=== PATIENT | male | born 1960 | race Caucasian/White ===

== ENCOUNTER 2025-03-15 17:45 | Emergency (ER) | payer SELFPAY ==
[2025-03-15] VITALS (9 sets, daily range): BP systolic 134–179; BP diastolic 66–75; PULSE 68–84; RESP 14–23; TEMP 36.8; O2SAT 96–100
--- NOTE | ~2025-03-15 | CT_ITS ---
CT abdomen pelvis w con Ordering provider: Nenita Sin PA-C History: 64 years Male with . distended abd, transaminitis . Comparison: The Technique: CT abdomen and pelvis with IV and without oral contrast. Automated exposure control and it erative reconstruction technique were employed. The dose-length product was 325.21 mGy-cm. 100 mL Omn ipaque 350 was Findings: VISUALIZED LOWER CHEST: The patient at 11 dependent atelectatic changes. UPPER ABDOMINAL ORGANS: Liver: Liver cirrhosis. Multiple masses in the liver with the largest measuring7.7 x 5.8 cm and 5.9 x 6.1 cm. Prominent prostate vein with thrombosis seen inside the brain. Gallbladder: Cholelithiasis. Spleen: Varices are seen in the hilum of the spleen. Stomach/duodenum: Small sliding hiatus hernia. Pancreas: Normal. Adrenals: Normal. Kidneys: Normal. PELVIC ORGANS: The bladder shows thickened wall. Evaluation for cystitis advised. BOWEL AND MESENTERY: Colon: No evidence of diverticulitis.. Appendix is not demonstrated. Small Bowel: Normal. No obstruction. Peritoneum/mesentery: No free air. Gross ascites is noted. No mesenteric lymphadenopathy. RETROPERITONEUM: Moderate atheromatous disease of the abdominal aorta. No retroperitoneal lymphaden opathy. MUSCULOSKELETAL: Superficial soft tissues: The superficial soft tissues are normal. Bones: Compression fractures of L3 and L4 is noted with multiple metastatic lesions seen in the spine . Metastatic lesions in the iliac bones are also noted. Age appropriate degenerative changes of the s pine. IMPRESSION: 1. Liver cirrhosis with masses in the liver suggestive of hepatocellular carcinoma. Metastatic lesio ns are not excluded. 2. Gross ascites. 3. Comparison is seen in the hilum of the spleen suggestive of portal hypertension. 4. 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 5. 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 6. Cholelithiasis. Reviewed, dictated and finalized at location A. IMPRESSION: 1. Liver cirrhosis with masses in the liver suggestive of hepatocellular carci noma. Metastatic lesions are not excluded. 2. Gross ascites. 3. Comparison is seen in the hilum of the spleen suggestive of portal hyperten katherine. 4. 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 5. Multiple metastatic lesions in the spine with compression fracture of L3 an d L4. 6. Cholelithiasis.
--- NOTE | ~2025-03-15 | XR_ITS ---
XR chest 1V portable Ordering provider: Nenita Sin PA-C History: 64 years Male with . volume overload . Comparison: None. FINDINGS: MEDIASTINUM: The cardiac silhouette is not enlarged. LUNGS: No infiltrates, effusions or pneumothorax. Prominent markings in the lower lobes with underlyi ng fibrotic changes. OTHER: No free air under the diaphragm. IMPRESSION: No acute cardiopulmonary pathology. Reviewed, dictated and finalized at location A.
--- NOTE | 2025-03-15 18:10 | ED.GENADULT ---
HPI - General Adult General Chief complaint: Unspecified <Nenita Sin PA-C - Last Filed: 03/15/25 18:11> Stated complaint: Liver issues -abdominal distention <Nenita Sin PA-C - Last Filed: 03/15/25 18:11> Time Seen by Provider: 03/15/25 19:01 <Nenita Sin PA-C - Last Filed: 03/15/25 18:11> Focused HPI: 64 y/o M with no past medical history presents to emergency department with concerns for ?liver issues?. Patient states he has had abdominal distention for the past 2 months, worsening over the past 2 weeks. Over the past 3 weeks began developing bilateral lower extremity edema that extends up into his proximal tibia. He denies current EtOH use but states he did quit drinking ETOH about 20 years ago. He was drinking 2-3 beers a day daily for couple of years at that time. He denies drug use. Denies chest pain or shortness of breath, history of CHF or CKD. He states he went into an outpatient walk-in lab a few days ago and had a CBC chemistry obtained which showed elevated liver enzymes. He denies abdominal pain, fever, nausea or vomiting. GENERAL: Well-appearing, well-nourished, and in no acute distress. HEAD: Normocephalic, atraumatic. CHEST: Clear to auscultation. ?No respiratory distress. HEART: Regular rate and rhythm.? NEURO: ?Alert and oriented x3. Patient screened in triage and initial orders placed.? ?Additional care and disposition to be based upon?diagnostic testing and treatment. <Nenita Sin PA-C - Last Filed: 03/15/25 18:11> Related Data Allergies/adverse reactions: Allergies Allergy/AdvReac Type Severity Reaction Status Date / Time No Known Allergies Allergy Verified 03/15/25 17:48 <Nenita Sin PA-C - Last Filed: 03/15/25 18:11> Review of Systems Review of Systems: All systems are reviewed and are negative unless stated otherwise in the HPI. <Lucas Velasco MD - Last Filed: 03/15/25 21:48> Exam Narrative: General: Alert, awake, afebrile, in no acute distress, mild jaundice. HEENT: PERRL, no rhinorrhea, no post nasal drip, oropharynx clear, mild scleral icterus. Neck: Trachea midline, no JVD, no lymphadenopathy. Cardiovascular: Regular rate and rhythm, no murmurs, rubs or gallops, 3+ bilateral lower extremity pitting edema extending up to the mid gardner. Respiratory: Clear to auscultation bilaterally, no tachypnea, no wheezing, no rhonchi, no rubs, no respiratory distress. Abdomen: Hard, nontender, distended, no rebound, no guarding, no peritoneal signs. Musculoskeletal: No joint swelling or deformity, normal muscle tone. Skin: No rashes or petechia, no signs of infection. Psychiatric: Alert and oriented, normal behavior and judgment for situation. Neurological: Alert and oriented to person, place, and time. Follows all commands. No focal deficits, speech is clear and fluent. <Lucas Velasco MD - Last Filed: 03/15/25 21:48> Course Vital Signs Vital signs: Vital Signs Temperature 98.2 F 03/15/25 17:50 Pulse Rate 84 03/15/25 17:50 Respiratory Rate 16 03/15/25 17:50 Blood Pressure 179/74 H 03/15/25 17:50 Pulse Oximetry 100 03/15/25 17:50 Temperature 98.2 F 03/15/25 17:50 Pulse Rate 73 03/15/25 20:17 Respiratory Rate 20 03/15/25 20:17 Blood Pressure 139/75 03/15/25 20:17 Pulse Oximetry 100 03/15/25 20:17 <Nenita Sin PA-C - Last Filed: 03/15/25 18:11> Vital Signs Temperature 98.2 F 03/15/25 17:50 Pulse Rate 84 03/15/25 17:50 Respiratory Rate 16 03/15/25 17:50 Blood Pressure 179/74 H 03/15/25 17:50 Pulse Oximetry 100 03/15/25 17:50 Temperature 98.2 F 03/15/25 17:50 Pulse Rate 73 03/15/25 20:17 Respiratory Rate 20 03/15/25 20:17 Blood Pressure 139/75 03/15/25 20:17 Pulse Oximetry 100 03/15/25 20:17 <Lucas Velasco MD - Last Filed: 03/15/25 21:48> Medical Decision Making MDM Narrative Medical decision making narrative: The patient was evaluated by myself in the emergency department. History is obtained from patient who is an independent historian and physical exam was performed. External medical records were reviewed at this time. IV was established and pertinent tests were ordered. Laboratory results obtained revealing a total bilirubin of 2.7, AST of 140, ALT of 90, otherwise unremarkable. Imaging studies obtained included CT abdomen pelvis with IV contrast which was independently interpreted by me revealing: IMPRESSION: 1. Liver cirrhosis with masses in the liver suggestive of hepatocellular carcinoma. Metastatic lesions are not excluded. 2. Gross ascites. 3. Comparison is seen in the hilum of the spleen suggestive of portal hypertension. 4. 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 5. 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 6. Cholelithiasis. Differential diagnosis considerations include cirrhosis, ascites, hepatic biliary disease, hepatocellular carcinoma. Comorbidities impacting this visit include none. I have evaluated and discussed social determinants of health with the patient that could potentially impact subsequent diagnosis and treatment plans. At this time, patient's blood work and CTs results were reviewed with the patient at bedside. 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 Patient understands the risk including . He states that he would rather take himself over to [place] or [facility] tomorrow and he does not want to be transferred tonight. <Lucas Velasco MD - Last Filed: 03/15/25 21:48> Vital Signs Vital Signs: Vital Signs Temperature 98.2 F 03/15/25 17:50 Pulse Rate 84 03/15/25 17:50 Respiratory Rate 16 03/15/25 17:50 Blood Pressure 179/74 H 03/15/25 17:50 Pulse Oximetry 100 03/15/25 17:50 Temperature 98.2 F 03/15/25 17:50 Pulse Rate 73 03/15/25 20:17 Respiratory Rate 20 03/15/25 20:17 Blood Pressure 139/75 03/15/25 20:17 Pulse Oximetry 100 03/15/25 20:17 <Nenita Sin PA-C - Last Filed: 03/15/25 18:11> Vital Signs Temperature 98.2 F 03/15/25 17:50 Pulse Rate 84 03/15/25 17:50 Respiratory Rate 16 03/15/25 17:50 Blood Pressure 179/74 H 03/15/25 17:50 Pulse Oximetry 100 03/15/25 17:50 Temperature 98.2 F 03/15/25 17:50 Pulse Rate 73 03/15/25 20:17 Respiratory Rate 20 03/15/25 20:17 Blood Pressure 139/75 03/15/25 20:17 Pulse Oximetry 100 03/15/25 20:17 <Lucas Velasco MD - Last Filed: 03/15/25 21:48> Lab Data Result diagrams: 03/15/25 19:15 03/15/25 19:15 <Nenita Sin PA-C - Last Filed: 03/15/25 18:11> Labs: Lab Results 03/15/25 Range/Units 19:15 WBC 3.6 L (4.5-10.0) K/mm3 RBC 3.98 L (4.6-6.20) M/mm3 Hgb 12.9 L (14.0-18.0) g/dL Hct 38.7 L (42.0-52.0) % MCV 97.2 (80-100) fl MCH 32.4 (26-34) pg MCHC 33.3 (32-36) g/dl RDW 17.2 H (11.5-14.5) % Plt Count 96 L (150-375) k/mm3 MPV 12.2 H (7.4-10.4) fl Immature Gran % (Auto) 0.3 (0-0.5) % Neut % (Auto) 68.4 (45.5-73.1) % Lymph % (Auto) 19.9 (18.3-44.2) % [place] % (Auto) 9.2 H (2.6-8.5) % Eos % (Auto) 1.4 (0-4.4) % Baso % (Auto) 0.8 (0.2-1.2) % Lymph # (Auto) 0.71 L (0.9-3.2) K/mm3 [place] # (Auto) 0.3 (0.1-0.6) K/mm3 Eos # (Auto) 0.1 (0-0.3) K/mm3 Baso # (Auto) 0.0 (0.0-0.1) K/mm3 Abs Immat Gran (auto) 0.01 (0.00-0.031) K/mm3 Absolute Neuts (auto) 2.4 (1.3-6.7) K/mm3 Absolute Nucleated RBC 0.000 (0.0-0.012) K/mm3 Band Neutrophils % 0 (0-6) % Nucleated RBC % 0.0 (0.0-0.2) % Platelet Estimate Decreased (Adequate) % Immature Plt Fraction 7.4 (0.9-11.2) % Anisocytosis 2+ Schistocytes None seen PT 15.3 H (11.1-14.7) Seconds INR 1.2 APTT 27.0 (22.3-36.8) Seconds Sodium 135 L (137-145) mmol/L Potassium 4.4 (3.4-5.0) mmol/L Chloride 103 (98-107) mmol/L Carbon Dioxide 22 (22-30) mmol/L Anion Gap 10 (4-12) mmol/L BUN 14 (9-20) mg/dL Creatinine 0.79 (0.7-1.3) mg/dL Estim Creat Clear Calc 75 ml/min Estimated GFR > 60 (59 - ) Glucose 95 (65-110) mg/dL Calcium 8.9 (8.4-10.2) mg/dL Total Bilirubin 2.7 H (0.2-1.3) mg/dL AST 140 H (17-59) U/L ALT 90 H (6-50) U/L Alkaline Phosphatase 314 H (38-126) U/L NT-Pro-B Natriuret Pep 392 H (19.9-100) pg/mL Total Protein 8.0 (6.3-8.2) g/dL Albumin 3.6 (3.5-5.1) g/dL Lipase 173 (23-300) U/L Urine Color Dark yellow (Yellow) Urine Appearance Clear (Clear) Urine pH 6.5 (5.0-9.0) Ur Specific [place] 1.026 (1.001-1.035) Urine Protein Trace (Negative) mg/dL Urine Glucose (UA) Negative (Negative) mg/dL Urine Ketones Trace H (Negative) mg/dL Ur Blood (Man) Negative (Negative) Urine Nitrate Negative (Negative) Urine Bilirubin 1+ H (Negative) Urine Urobilinogen 1.0 (<2.0) mg/dL Leukocyte Esterase Rfl Trace H (Negative) ADAM/UL Urine RBC 0-2 (0-2) /hpf Urine WBC 0-5 (0-3) /hpf Ur Squamous Epith Cells None seen (Few) /hpf Urine Bacteria None seen /hpf Urine Casts 0-2 <Nenita Sin PA-C - Last Filed: 03/15/25 18:11> Lab Results 03/15/25 Range/Units 19:15 WBC 3.6 L (4.5-10.0) K/mm3 RBC 3.98 L (4.6-6.20) M/mm3 Hgb 12.9 L (14.0-18.0) g/dL Hct 38.7 L (42.0-52.0) % MCV 97.2 (80-100) fl MCH 32.4 (26-34) pg MCHC 33.3 (32-36) g/dl RDW 17.2 H (11.5-14.5) % Plt Count 96 L (150-375) k/mm3 MPV 12.2 H (7.4-10.4) fl Immature Gran % (Auto) 0.3 (0-0.5) % Neut % (Auto) 68.4 (45.5-73.1) % Lymph % (Auto) 19.9 (18.3-44.2) % [place] % (Auto) 9.2 H (2.6-8.5) % Eos % (Auto) 1.4 (0-4.4) % Baso % (Auto) 0.8 (0.2-1.2) % Lymph # (Auto) 0.71 L (0.9-3.2) K/mm3 [place] # (Auto) 0.3 (0.1-0.6) K/mm3 Eos # (Auto) 0.1 (0-0.3) K/mm3 Baso # (Auto) 0.0 (0.0-0.1) K/mm3 Abs Immat Gran (auto) 0.01 (0.00-0.031) K/mm3 Absolute Neuts (auto) 2.4 (1.3-6.7) K/mm3 Absolute Nucleated RBC 0.000 (0.0-0.012) K/mm3 Band Neutrophils % 0 (0-6) % Nucleated RBC % 0.0 (0.0-0.2) % Platelet Estimate Decreased (Adequate) % Immature Plt Fraction 7.4 (0.9-11.2) % Anisocytosis 2+ Schistocytes None seen PT 15.3 H (11.1-14.7) Seconds INR 1.2 APTT 27.0 (22.3-36.8) Seconds Sodium 135 L (137-145) mmol/L Potassium 4.4 (3.4-5.0) mmol/L Chloride 103 (98-107) mmol/L Carbon Dioxide 22 (22-30) mmol/L Anion Gap 10 (4-12) mmol/L BUN 14 (9-20) mg/dL Creatinine 0.79 (0.7-1.3) mg/dL Estim Creat Clear Calc 75 ml/min Estimated GFR > 60 (59 - ) Glucose 95 (65-110) mg/dL Calcium 8.9 (8.4-10.2) mg/dL Total Bilirubin 2.7 H (0.2-1.3) mg/dL AST 140 H (17-59) U/L ALT 90 H (6-50) U/L Alkaline Phosphatase 314 H (38-126) U/L NT-Pro-B Natriuret Pep 392 H (19.9-100) pg/mL Total Protein 8.0 (6.3-8.2) g/dL Albumin 3.6 (3.5-5.1) g/dL Lipase 173 (23-300) U/L Urine Color Dark yellow (Yellow) Urine Appearance Clear (Clear) Urine pH 6.5 (5.0-9.0) Ur Specific [place] 1.026 (1.001-1.035) Urine Protein Trace (Negative) mg/dL Urine Glucose (UA) Negative (Negative) mg/dL Urine Ketones Trace H (Negative) mg/dL Ur Blood (Man) Negative (Negative) Urine Nitrate Negative (Negative) Urine Bilirubin 1+ H (Negative) Urine Urobilinogen 1.0 (<2.0) mg/dL Leukocyte Esterase Rfl Trace H (Negative) ADAM/UL Urine RBC 0-2 (0-2) /hpf Urine WBC 0-5 (0-3) /hpf Ur Squamous Epith Cells None seen (Few) /hpf Urine Bacteria None seen /hpf Urine Casts 0-2 <Lucas Velasco MD - Last Filed: 03/15/25 21:48> Discharge Plan Discharge Clinical Impression: Hepatocellular carcinoma, Cancer, metastatic to bone, Transaminitis, Cirrhosis <Nenita Sin PA-C - Last Filed: 03/15/25 18:11> Patient Disposition: Left Against Medical Advice <Nenita Sin PA-C - Last Filed: 03/15/25 18:11> Condition: Stable <Nenita Sin PA-C - Last Filed: 03/15/25 18:11> Instructions: Liver Cancer (DC) <Nenita Sin PA-C - Last Filed: 03/15/25 18:11> Additional Instructions: You were evaluated in the emergency department regarding your fluid retention and abdominal distension, you were evaluated your CT scan revealed masses your liver concerning for liver cancer and we recommended transferring you to a higher level of care a such as [facility] or [facility] but your refused. You understand that you are leaving the emergency department against our medical advice. <Nenita Sin PA-C - Last Filed: 03/15/25 18:11> Patient Language: Portuguese <Nenita Sin PA-C - Last Filed: 03/15/25 18:11> Follow-up/Referrals: PHYSICIAN,GENERAL SCIENCE TEACHER [Primary Care Provider] - <Nenita Sin PA-C - Last Filed: 03/15/25 18:11> Time of Disposition: 21:41 <Nenita Sin PA-C - Last Filed: 03/15/25 18:11> 21:41 <Lucas Velasco MD - Last Filed: 03/15/25 21:48>
[2025-03-15 19:21] LABS: Basophils Percent Auto 0.8 % (0.2-1.2); Eosinophils Absolute Auto 0.1 K/mm3 (0-0.3); Eosinophils Percent Auto 1.4 % (0-4.4); Hematocrit 38.7 % (42.0-52.0); Hemoglobin 12.9 g/dL (14.0-18.0); Immature Granulocyte Absolute 0.01 K/mm3 (0.00-0.031); Immature Granulocyte Percent A 0.3 % (0-0.5); Immature Platelet Fraction Pct 7.4 % (0.9-11.2); Lymphocytes Absolute Auto 0.71 K/mm3 (0.9-3.2); Lymphocytes Percent Auto 19.9 % (18.3-44.2); Mean Corpuscular HGB Conc 33.3 g/dl (32-36); Mean Corpuscular Hemoglobin 32.4 pg (26-34); Mean Corpuscular Volume 97.2 fl (80-100); Mean Platelet Volume 12.2 fl (7.4-10.4); Monocytes Absolute Auto 0.3 K/mm3 (0.1-0.6); Monocytes Percent Auto 9.2 % (2.6-8.5); Neutrophils Absolute Auto 2.4 K/mm3 (1.3-6.7); Neutrophils Percent Auto 68.4 % (45.5-73.1); Platelet Count Result 96 k/mm3 (150-375); Red Blood Count 3.98 M/mm3 (4.6-6.20); Red Cell Distribution Width 17.2 % (11.5-14.5); White Blood Count 3.6 K/mm3 (4.5-10.0)
[2025-03-15 19:29] LABS: Alanine Aminotransferase 90 U/L (6-50); Albumin Level 3.6 g/dL (3.5-5.1); Alkaline Phosphatase 314 U/L (38-126); Anion Gap 10 mmol/L (4-12); Aspartate Amino Transferase 140 U/L (17-59); Bilirubin,Total 2.7 mg/dL (0.2-1.3); Blood Urea Nitrogen 14 mg/dL (9-20); Calcium 8.9 mg/dL (8.4-10.2); Carbon Dioxide 22 mmol/L (22-30); Chloride 103 mmol/L (98-107); Estimated CRCL calculation 75 ml/min; Estimated Glomerular Filt Rate > 60; Glucose 95 mg/dL (65-110); Lipase 173 U/L (23-300); Potassium 4.4 mmol/L (3.4-5.0); Sodium 135 mmol/L (137-145)
[2025-03-15 19:38] LABS: NT Pro B Type Natriuretic Pept 392 pg/mL (19.9-100)
[2025-03-15 19:44] LABS: Add Urine Microscopic? YES; Appearance Urine Clear (Clear); Bacteria Urine None Seen /hpf; Bilirubin Urine 1+ (Negative); Blood Urine Negative (Negative); Color Urine Dark Yellow (Yellow); Glucose Urine UA Negative (Negative); INR 1.2; Ketones Urine Trace mg/dL (Negative); Leukocyte Esterase Ur Trace LEU/UL (Negative); Nitrate Urine Negative (Negative); Non Pathogenic Casts 0-2; Protein Urine Trace mg/dL (Negative); Prothrombin Time 15.3 Seconds (11.1-14.7); RBC Urine 0-2 /hpf (0-2); Specific Grav Ur 1.026 (1.001-1.035); Squamous Epithelial Cell Urine None Seen /hpf (Few); WBC Urine 0-5 /hpf (0-3); pH Urine 6.5 (5.0-9.0)
--- NOTE | 2025-03-15 19:45 | PC.NURSE ---
Received report from ALEX Kimball for [facility]. Pt AOX4, presents to ED due to abnormal liver lab values per clinic. Pt on cardiac tech and IV inserted at this time.
[2025-03-15 19:46] LABS: Anisocytosis 2+; Band Neutrophils Percent 0 % (0-6); Platelet Estimate Decreased (Adequate); Schistocytes None Seen
--- NOTE | 2025-03-15 21:25 | PC.NURSE ---
MD at bedside discussing plan of care with pt.
--- NOTE | 2025-03-15 21:48 | PC.NURSE ---
Pt leaving against medical advice, MD at bedside explaining risk with leaving AMA. Pt AOX4, insisting he will be going to higher level of care on his own. Pt verbalized understanding. Pt ambulatory out of ED with even and steady gait.
== END 2025-03-15 21:57 | disposition left against medical advice (07) ==
PROVIDERS: Physician Assistant; Emergency Provider Emergency Medicine
DX: C22.0 Liver cell carcinoma (principal); C79.51 Secondary malignant neoplasm of bone; R74.01 Elevation of levels of liver transaminase levels; K74.60 Unspecified cirrhosis of liver
CPT/HCPCS: 36415; 71045; 74177; 80053; 81001; 83690; 83880; 85025; 85055; 85610; 85730; 99284; Q9967